=== PATIENT | female | born 1960 ===

== ENCOUNTER 2024-09-12 05:13 | Day surgery (SDC) | payer OTHER ==
[2024-09-05 08:18] LABS: HEMOGLOBIN 14.5 g/dL (12.0-15.00); MEAN CELL VOLUME 96.1 fL (80.00-100.00); MEAN CORPUSCULAR HEMOGLOBIN 32.3 pg (27.00-32.0); MEAN CORPUSCULAR HGB CONC 33.6 g/dl (32.0-36.0); PLATELET COUNT 213 K/uL (150-450); RED BLOOD COUNT 4.48 M/uL (4.00-6.00); RED CELL DISTRIBUTION WIDTH 13.6 % (11.5-14.5)
[2024-09-05 08:38] LABS: INR 1.03; PARTIAL THROMBOPLASTIN TIME 25.1 SECONDS (22.0-34.0); PROTHROMBIN TIME 11.2 SECONDS (9.0-11.5)
[2024-09-05 08:41] VITALS: BP 140/84
[2024-09-05 08:43] LABS: CALCIUM 9.4 mg/dL (8.5-10.1); CREATININE SERUM 0.72 mg/dL (0.55-1.02); GFR 82.08; PHOSPHOROUS 3.8 mg/dL (2.5-4.9); POTASSIUM 4.26 mEq/L (3.5-5.1)
[2024-09-05 08:55] LABS: URINE APPEARANCE Clear; URINE BILIRRUBIN Negative (NEGATIVE); URINE BLOOD Moderate; URINE COLOR Yellow; URINE GLUCOSE Negative (NEGATIVE); URINE KETONE Negative (NEGATIVE); URINE LEUKOCYTE Trace; URINE NITRATE Negative; URINE PROTEIN Negative (NEGATIVE); URINE UROBILINOGEN 0.2 E.U./dl
[2024-09-05 08:57] LABS: URINE BACTERIA 381.7 uL (0.0-1933); URINE EPITHELIAL CELLS 18.3 uL (0.0-38.8); URINE RBC 22.9 uL (0.0-20.8); URINE WBC 17.7 uL (0.0-23.2)
[~2024-09-12] VITALS: Ht 154.9 cm; Wt 85.7 kg
[~2024-09-12 05:13] MED LIST: DILANTIN100 MG PO; SIMVASTATIN5 MG PO
[2024-09-12] MEDS ORDERED: CEFAZOLIN SODIUM 1,000 MG VIAL ONE (07:17)
[2024-09-12] MEDS ORDERED: EPINEPHRINE HCL/PF 1 MG/ML AMPUL ONE (07:17)
[2024-09-12] MEDS ORDERED: POVIDONE-IODINE SCRUB 118 ML BOTT TOP ONE (07:20)
[2024-09-12] MEDS ORDERED: POVIDONE-IODINE 118 ML BOTT TOP ONE (07:20)
[2024-09-12] MEDS ORDERED: LIDOCAINE HCL 1%/EPINEPHRINE 20ML VIAL IJ ONE (07:55)
[2024-09-12] MEDS ORDERED: DEXAMETHASONE SODIUM PHOSPHATE 4 MG/ML VIAL ONE (08:19)
[2024-09-12] MEDS ORDERED: CIPROFLOXACIN2.5 ML OTIC (08:50)
[2024-09-12] MEDS ORDERED: CEPHALEXIN500 MG PO (08:50)
== END 2024-09-12 11:15 | disposition home or self-care (01) ==
LOC: CIR.AMB 05:13
PROVIDERS: ATTEND Otolaryngology Otology & Neurotology
DX: H80.81 Other otosclerosis, right ear (principal); H90.11 Conductive hearing loss, unilateral, right ear, with unrestricted hearing on the contralateral side; H80.91 Unspecified otosclerosis, right ear; H72.01 Central perforation of tympanic membrane, right ear; J45.909 Unspecified asthma, uncomplicated; E78.5 Hyperlipidemia, unspecified; R56.9 Unspecified convulsions